=== PATIENT | male | born 1985 | race African-American/Black ===

== ENCOUNTER 2018-07-05 15:12 | Emergency (ER) | payer SELFPAY ==
[~2018-07-05] VITALS: Ht 175.3 cm; Wt 95.0 kg
[~2018-07-05 15:12] MED LIST: BLEPH-1010 % OS; DARVOCET N-100100 - OR; FLEXERIL OR; NO MEDS; ULTRAM50 M1 OR
[2018-07-05] MEDS ORDERED: TYLENOL 500MG TAB PO (15:50)
[2018-07-05 16:11] LABS: HEMATOCRIT 37.4 % (39.0-50.0); IMMATURE GRANULOCYTES 0.2 % (0.0-5.0); MEAN CELL VOLUME 86.2 fL CALC (80.0-100.0); MEAN CORPUSCULAR HGB 27.6 pG CALC (26.0-32.0); MEAN CORPUSCULAR HGB CONC 32.1 g/L CALC (32.0-36.0); NEUT# 5.2 thou/uL (1.82-7.42); RED BLOOD COUNT 4.34 mill/uL (4.70-6.10); RED CELL DISTRI WIDTH 13.4 % (11.5-15.5)
[2018-07-05 16:31] LABS: ANION GAP 12 (6-22 (CALC)); BUN 10 mg/dL (9-20); BUN/CREATININE RATIO 10 (12-20 (CALC)); CARBON DIOXIDE 26 mmol/l (22-30); CHLORIDE 104 mmol/l (95-108); GFR > 60 ML/MIN (>=60 (CALC)); GFR FOR AFR.AMER. > 60 ML/MIN (>=60 (CALC)); SODIUM 139 mmol/l (137-146)
[2018-07-05] MEDS ORDERED: MOTRIN400 MG PO (17:10)
[2018-07-05] MEDS ORDERED: CYCLOBENZAPR5 MG PO (17:10)
[2018-07-05 17:11] VITALS: BP 128/61
== END 2018-07-05 17:34 | disposition home or self-care (01) | DRG 313 ==
LOC: ED 15:12
PROVIDERS: Family Medicine
DX: R07.9 Chest pain, unspecified (principal); S76.011A Strain of muscle, fascia and tendon of right hip, initial encounter; F17.200 Nicotine dependence, unspecified, uncomplicated; X58.XXXA Exposure to other specified factors, initial encounter

== ENCOUNTER 2018-11-28 13:37 | Emergency (ER) | payer SELFPAY ==
[~2018-11-28] VITALS: Ht 175.3 cm; Wt 85.0 kg
[~2018-11-28 13:37] MED LIST changes: +CYCLOBENZAPR5 MG PO; +MOTRIN400 MG PO; +TYLENOL 500MG TAB PO
[2018-11-28] MEDS ORDERED: PENICILLN VK500 MG PO (14:56)
[2018-11-28 15:34] VITALS: BP 118/73
== END 2018-11-28 15:34 | disposition home or self-care (01) | DRG 159 ==
LOC: ED 13:37
DX: K03.81 Cracked tooth (principal); F17.200 Nicotine dependence, unspecified, uncomplicated

== ENCOUNTER 2021-02-09 08:24 | Emergency (ER) | payer SELFPAY ==
[~2021-02-09] VITALS: Ht 175.3 cm; Wt 90.9 kg
[~2021-02-09 08:24] MED LIST changes: +PENICILLN VK500 MG PO
[2021-02-09] MEDS ORDERED: TORADOL PO (10:05)
[2021-02-09 10:09] VITALS: BP 119/63
== END 2021-02-09 10:16 | disposition home or self-care (01) | DRG 563 ==
LOC: ED 08:24
DX: S43.421A Sprain of right rotator cuff capsule, initial encounter (principal); F17.290 Nicotine dependence, other tobacco product, uncomplicated; X50.0XXA Overexertion from strenuous movement or load, initial encounter; Y93.61 Activity, american tackle football